=== PATIENT | female | born 1985 | race Caucasian/White ===

== ENCOUNTER → 2017-11-12 | Outpatient (CLI) | payer OTHER | END | disposition home or self-care (01) | LOC: C.PAPS 12:13 | PROVIDERS: ATTEND Physician Assistant | DX: Z12.4 Encounter for screening for malignant neoplasm of cervix (principal); R87.612 Low grade squamous intraepithelial lesion on cytologic smear of cervix (LGSIL) ==

== ENCOUNTER → 2017-12-03 | Outpatient (CLI) | payer OTHER | END | disposition home or self-care (01) | LOC: C.PATHSPEC 13:26 | PROVIDERS: ATTEND Obstetrics & Gynecology | DX: N87.0 Mild cervical dysplasia (principal); A63.0 Anogenital (venereal) warts; N72 Inflammatory disease of cervix uteri ==

== ENCOUNTER → 2018-02-25 | Outpatient (CLI) | payer BC ==
[2018-02-25 15:43] LABS: BASO % 0.3 %; BASO ABS # 0.02 K/uL (0-0.2); EOS % 1.7 %; EOS ABS # 0.13 K/uL (0-0.5); HEMATOCRIT 35.9 % (37-47); HEMOGLOBIN 11.6 g/dL (12.0-16.0); IG# 0.02 K/uL (0.00-0.02); LYMPH % 19.6 %; LYMPH ABS # 1.46 K/uL (1.2-3.4); MEAN CELL VOLUME 86.5 fL (80-100); MEAN CORPUSCULAR HGB CONC 32.3 g/dl (32-36); MEAN PLATELET VOLUME 11.2 fL (7.4-10.4); MONO % 5.6 %; MONO ABS # 0.42 K/uL (0.11-0.59); NEUT % 72.5 %; PLATELET COUNT 226 K/uL (130-400); RED CELL DISTRIBUTION WIDTH CV 13.9 % (11.5-14.5); RED CELL DISTRIBUTION WIDTH SD 43.8 fL (36.4-46.3); WHITE BLOOD COUNT 7.45 K/uL (4.8-10.8)
== END | disposition home or self-care (01) ==
LOC: C.LAB1850 14:31
PROVIDERS: ATTEND Physician Assistant
DX: K92.1 Melena (principal)

== ENCOUNTER → 2018-06-17 | Outpatient (CLI) | payer BC | END | disposition home or self-care (01) | LOC: C.PAPS 13:57 | PROVIDERS: ATTEND Obstetrics & Gynecology | DX: N87.0 Mild cervical dysplasia (principal) ==

== ENCOUNTER 2020-09-30 07:40 | Inpatient (IN) ==
[2020-09-30] MEDS ORDERED: OXYTOCIN 30 UNITS/500 ML BAG IV PRN ×3 (08:00→11:02)
--- NOTE | 2020-09-30 08:01 | History & Physical Report ---
Date of Service September 30, 2020 Assessment & Plan (1) Encounter for induction of labor: PNL: Rh pos, RI, GBS neg, COVID neg Admit, labs, start IV Epidural when desired; anesthesiology consult placed Proceed with induction of labor per Pitocin augmentation protocol. Anticipate Admission and Anticipated Discharge Date Admission Date: September 30, 2020 History of Present Illness Primary Care Provider: Vidal Jackson MD Violeta Pettit is a 35 y/o female currently at 41 WGA with an GARRETT 09/23/20 as determined by LMP who is here for IOL due to postdates. She did present last night to L&D to have the cervical parry bulb placement to help augment IOL. Her was uncomplicated; no hx of HTN, thyroid problems, of GDM. Patient reports: + irregular contractions; + movement; - fluid loss; - bloody show Had regular appointments with OB. Blood type: O+ Antibody screen: neg Labs 02/13/20 Rubella: Immune VDRL/RPR: neg Gonorrhea: neg Chlamydia: neg HIV: neg HbSAg: neg GBS: negative 08/27/20 COVID-19 negative 09/10/20 and 09/20/20 Other screens: declined cf/sma/quad/genetics Allergies Allergy/AdvReac Type Severity Reaction Status Date / Time Sulfa (Sulfonamide Allergy Verified 09/27/20 12:01 Antibiotics) Home Medications Home Medications Medication Instructions Recorded Confirmed Type [id number] fum-folic [id number] PO 11/30/19 09/27/20 History breast pump #1 ea 07/01/20 09/27/20 Rx Patient History Medical History (Updated 09/30/20 @ 08:31 by Joyce Huang DO) Condyloma acuminatum Encounter for anatomic survey Encounter for gynecological examination with abnormal finding Encounter for preconception consultation History of cervical dysplasia Hx of varicella Inflamed seborrheic keratosis LGSIL on Pap smear of cervix Mild dysplasia of cervix (DAVID I) Surgical History H/O colposcopy with cervical biopsy Family History Mother Fibroadenoma of breast Depression Social History Smoking Status: Never smoker Hx Alcohol Use: No Hx Substance Use: No Preferred Language: Yakut Beliefs That Will Affect Care: None marital status: Single marital status details: CECI Cancino (35) [phone] Current Living Situation: Spouse Current Living Situation Comment: two dogs current occupational status: employed 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 Denies shortness of breath or cough. Denies chest pain. Denies dysuria or hematuria. + int mild leg swelling. Denies leg pain. Denies headache or changes in vision. Physical Exam Physical Exam: General: Alert, oriented. No acute distress. Cardiac: Regular rate and rhythm, no murmurs/rubs/gallops. Respiratory: Clear to auscultation bilaterally a/p, no wheezes/rales/rhonchi. No increased work of breathing. Symmetrical chest rise. No respiratory distress. Abdomen: Gravid. Vertex position confirmed by bedside US. + heart tones. - palpable contractions. EFW 7-8# Pelvic: Cervical parry bulb in place. Dilation 2 cm; Effacement 50%; Station -[address] Whelan External FHT and external uterine monitors used; Category I tracing; moderate FHT variability. Lower Extremities: No lower extremity edema or swelling. No deep calf pain. Ibeth's negative bilaterally Results & Data ([facility]) Vital Signs (Past 12 Hours) Vital Signs Pulse BP 09/30/20 07:49 89 131/61 Laboratory Results Labs at admission today H.3 Hct: 37.8 WBC: 11.23 Plt: 159 Supervising Physician Co-Signing Physician Notes Resident Physician Supervision Note: I interviewed and examined the patient. Discussed with Dr. Huang and agree with findings and plan as documented in the note. Any exceptions or clarifications are listed here: 35 y/o G1 at 41 wga presents for late term IOL. +FM and irreg ctx, -LOF/VB. course uncomplicated. VSS, parry bulb still in place but at edge of cervix. Cephalic by BSUS. Will start pitocin and let parry bulb expel, suspect it will soon. Fetus cat 1 tracing Documented By: Kacie Whelan MD Resident Activity Tracking Resident Involvement: Resident Care Provided Care Provided: OB Delivery
[2020-09-30] MEDS: LACTATED RINGER'S 1,000 ML IV PRN ×3 (08:34→18:56)
[2020-09-30 08:38] LABS: Hematocrit (blood only) 37.8 % (37-47); Hemoglobin 12.3 g/dL (12.0-16.0); Mean Corpuscular Hemoglobin 28.1 pg (25-34); Mean Corpuscular Volume 86.5 fL (80-100); Mean Platelet Volume 13.3 fL (7.4-10.4); Platelet Count 159 K/uL (130-400); RDW Coefficient of Variation 17.1 % (11.5-14.5); RDW Standard Deviation 54.1 fL (36.4-46.3); Red Blood Count 4.37 M/uL (4.2-5.4); White Blood Count 11.23 K/uL (4.8-10.8)
[2020-09-30 08:53] LABS: Mean Corpuscular Hgb Conc 32.5 g/dL (32-36)
--- NOTE | 2020-09-30 10:39 | Labor Progress Brief Note ---
Date of Service September 30, 2020 Subjective Parry bulb out, noticing ctx more Assessment & Plan (1) : 35 y/o G1 at 41 wga presenting for late term IOL VSS Fetus cat 1 Labor - s/p parry bulb, pit at 3. Titrate per protocol GBS neg Epidural PRN Admission and Anticipated Discharge Date Admission Date: September 30, 2020 Physical Exam Genitourinary: OB Exam Abdomen: + irregular contractions Manual OB Exam: + cervical dilation 4 cm, + cervical effacement 50% and + station -2 OB Exam Monitor Tracing: + external FHT monitor used, + external uterine monitor used and + category I (135/mod/+accel/-decel) Results & Data ([facility]) Vital Signs (Past 12 Hours) Vital Signs Temp Pulse Resp BP 09/30/20 10:15 86 123/64 09/30/20 07:50 97.5 F L 89 20 131/61 09/30/20 07:49 89 131/61 Coding Level of Care Code None Diagnoses Z34.90
--- NOTE | 2020-09-30 15:08 | Labor Progress Brief Note ---
Date of Service September 30, 2020 Subjective Notes ctx slightly less intense than previously Assessment & Plan (1) : 35 y/o G1 at 41 wga presenting for late term IOL VSS Fetus cat 1 Labor - pit at 14, now increased to 16. s/p arom now, continue to titrate pit GBS neg Epidural PRN Admission and Anticipated Discharge Date Admission Date: September 30, 2020 Physical Exam Genitourinary: OB Exam Abdomen: + regular contractions (q3-4min) Manual OB Exam: + cervical dilation 4 cm, + cervical effacement 50%, + station -2 and + amniotic fluid (AROM) clear OB Exam Monitor Tracing: + external FHT monitor used, + external uterine monitor used and + category I (125/mod/+accel/-decel) Results & Data ([facility]) Vital Signs (Past 12 Hours) Vital Signs Temp Pulse Resp BP 09/30/20 13:02 80 20 131/79 09/30/20 12:03 81 18 122/74 09/30/20 10:58 98.2 F 76 20 122/81 09/30/20 10:15 86 123/64 09/30/20 07:50 97.5 F L 89 20 131/61 09/30/20 07:49 89 131/61 Coding Level of Care Code None Diagnoses Z34.90
[2020-09-30] MEDS ORDERED: fentaNYL 2MCG/ML ROPIVACAINE 1.25MG/ML 100 ML BAG EPI ONE (17:11)
[2020-09-30] MEDS ORDERED: ePHEDrine sulfate 50 MG/ML AMP ONE (17:11)
[2020-09-30] MEDS ORDERED: BUPIVACAINE 0.25% 30 ML VIAL ONE ×2 (17:11→20:28)
[2020-09-30] MEDS ORDERED: SODIUM CHLORIDE 0.9% INJ 10 ML VIAL ONE (17:11)
[2020-09-30] MEDS ORDERED: fentaNYL citrate 100 MCG/2 ML VIAL ONE (17:11)
--- NOTE | 2020-09-30 17:16 | Labor Progress Brief Note ---
Date of Service September 30, 2020 Subjective Ctx significantly worsened, desires epidural Assessment & Plan (1) : 35 y/o G1 at 41 wga presenting for late term IOL VSS Fetus cat 1 Labor - pit at 16, progressing following AROM, station much lower and much more uncomfortable GBS neg Epidural - desires epidural now Admission and Anticipated Discharge Date Admission Date: September 30, 2020 Physical Exam Genitourinary: OB Exam Abdomen: + regular contractions (q3min) Manual OB Exam: + cervical dilation 5 cm, + cervical effacement 70%, + station -1 and + amniotic fluid (AROM) clear OB Exam Monitor Tracing: + external FHT monitor used, + external uterine monitor used and + category I (135/mod/+accel/-decel) Results & Data ([facility]) Vital Signs (Past 12 Hours) Vital Signs Temp Pulse Resp BP Pulse Ox 09/30/20 17:10 81 100 09/30/20 16:30 77 132/75 09/30/20 15:06 98.2 F 78 20 128/82 09/30/20 13:02 80 20 131/79 09/30/20 12:03 81 18 122/74 09/30/20 10:58 98.2 F 76 20 122/81 09/30/20 10:15 86 123/64 09/30/20 07:50 97.5 F L 89 20 131/61 09/30/20 07:49 89 131/61 Coding Level of Care Code None Diagnoses Z34.90
[2020-09-30] MEDS ORDERED: NALOXONE HCL 1 MG in SODIUM CHLORIDE 0.9% 1000ML 1,000 ML IV PRN (17:17)
[2020-09-30] MEDS ORDERED: diphenhydrAMINE 50 MG/ML VIAL IV PRN (17:17)
[2020-09-30] MEDS ORDERED: ePHEDrine sulfate 50 MG/ML AMP IV PRN (17:17)
[2020-09-30] MEDS ORDERED: ONDANSETRON INJ 2 MG/ML 2 ML VIAL IV PRN (17:17)
[2020-09-30] MEDS ORDERED: fentaNYL 2MCG/ML ROPIVACAINE 1.25MG/ML 100 ML BAG EPI PRN (17:17)
[2020-09-30] MEDS ORDERED: NALOXONE HCL 0.4 MG/1 ML VIAL/CARP IV PRN (17:17)
--- NOTE | 2020-09-30 17:19 | Anesthesiology Consultation ---
Date of Service September 30, 2020 Assessment & Plan (1) Encounter for pre-operative examination: Chart Review Chart Review: Patient NOT seen in Pre Admission Testing and Acceptable Risk for Labor Epidural Consults Requested none History Height/Weight Height: 5 ft 4 in Weight: 72.575 kg Allergies Allergy/AdvReac Type Severity Reaction Status Date / Time Sulfa (Sulfonamide Allergy Mild Rash Verified 09/30/20 10:01 Antibiotics) Medications Home Medications Medication Instructions Recorded Confirmed Last Taken prenat.vits,juan c,xvb-tbve-conaz 1 tab PO DAILY 09/30/20 09/30/20 09/30/20 07:00 [ Vitamin] Active Medications Generic Name Dose Route Start Last Admin Trade Name Freq PRN Reason Stop Dose Admin Lactated Ringer's 1,000 mls @ 125 mls/hr 09/30/20 08:00 09/30/20 17:16 Lr IV 10/02/20 07:59 999 mls/hr .Q8H PRN Infusion L&D Protocol Protocol Oxytocin 30 units in 500 mls @ 16 mls/hr 09/30/20 11:02 09/30/20 15:00 Pitocin IV 10/02/20 11:01 0.96 units/hr .Q24H PRN 16 mls/hr Labor Induction/Augmentation Titration Protocol 0.96 UNITS/HR Past Medical History Medical History Condyloma acuminatum Encounter for anatomic survey Encounter for gynecological examination with abnormal finding Encounter for preconception consultation History of cervical dysplasia Hx of varicella Inflamed seborrheic keratosis LGSIL on Pap smear of cervix Mild dysplasia of cervix (DAVID I) Exercise / Class Metabolic Activity II 4-5 Yardwork/Stairs/Walk up hill Past Family History Family History Mother Fibroadenoma of breast Depression Past Surgical History Surgical History H/O colposcopy with cervical biopsy Past Anesthesia History No Hx of Anesthesia Complications and No Family Hx of Anesthesia Complications History of PONV No Hx of PONV and No Hx of Motion Sickness Social History Smoking Status: Never smoker Do You Dip or Chew Tobacco: No Hx Alcohol Use: No Hx Substance Use: No substance use type: does not use Physical Exam Vital Signs Last Vital Signs Temp 36.8 C 09/30/20 15:06 Pulse 77 09/30/20 17:34 Resp 20 09/30/20 15:06 BP 133/74 09/30/20 17:34 Pulse Ox 100 09/30/20 17:30 Testing Laboratory Results 09/30/20 08:09
--- NOTE | 2020-09-30 19:38 | Labor Progress Brief Note ---
Date of Service September 30, 2020 Subjective Noticing some ctx pain again on R side Assessment & Plan (1) : 35 y/o G1 at 41 wga presenting for late term IOL VSS Fetus cat 1 Labor - pit at 18, continue pit augmentation. Station has come down GBS neg Epidural in place Admission and Anticipated Discharge Date Admission Date: September 30, 2020 Physical Exam Genitourinary: OB Exam Abdomen: + regular contractions (q3-4min) Manual OB Exam: + cervical dilation 5 cm, + cervical effacement 70%, + station 0 and + a mniotic fluid clear OB Exam Monitor Tracing: + external FHT monitor used, + external uterine monitor used and + category I (125/mod/+accel/-decel) Results & Data ([facility]) Vital Signs (Past 12 Hours) Vital Signs Temp Pulse Resp BP Pulse Ox 09/30/20 19:30 69 100 09/30/20 19:26 64 119/69 09/30/20 19:25 74 100 09/30/20 19:20 70 99 09/30/20 19:15 65 98 09/30/20 19:11 66 128/65 09/30/20 19:10 66 100 09/30/20 19:06 97.5 F L 18 09/30/20 19:05 67 99 09/30/20 19:00 81 100 09/30/20 18:57 75 126/71 09/30/20 18:55 74 100 09/30/20 18:50 74 100 09/30/20 18:45 72 100 09/30/20 18:40 76 100 09/30/20 18:35 83 99 09/30/20 18:30 80 99 09/30/20 18:26 77 120/77 09/30/20 18:25 72 99 09/30/20 18:20 75 99 09/30/20 18:15 79 100 09/30/20 18:10 77 100 09/30/20 18:05 73 100 09/30/20 18:00 86 100 09/30/20 17:59 82 20 113/64 09/30/20 17:55 77 100 09/30/20 17:51 75 108/64 09/30/20 17:50 78 100 09/30/20 17:49 72 116/69 09/30/20 17:47 78 114/71 09/30/20 17:45 78 119/70 100 09/30/20 17:43 97.7 F 76 20 113/69 09/30/20 17:41 75 119/70 09/30/20 17:40 77 100 09/30/20 17:39 73 118/68 09/30/20 17:37 86 119/71 09/30/20 17:35 87 130/70 100 09/30/20 17:34 77 133/74 09/30/20 17:30 81 100 09/30/20 17:25 84 100 09/30/20 17:20 82 100 09/30/20 17:15 76 99 09/30/20 17:10 81 100 09/30/20 16:30 77 132/75 09/30/20 15:06 98.2 F 78 20 128/82 09/30/20 13:02 80 20 131/79 09/30/20 12:03 81 18 122/74 09/30/20 10:58 98.2 F 76 20 122/81 09/30/20 10:15 86 123/64 09/30/20 07:50 97.5 F L 89 20 131/61 09/30/20 07:49 89 131/61 Coding Level of Care Code None Diagnoses Z34.90
[2020-09-30] MEDS ORDERED: NURSING L&D Epidural Breakthrough Pain Update ONE (20:10)
--- NOTE | 2020-09-30 20:38 | Communication Note ---
Date of Service: September 30, 2020 pt having increased pain in lower abdomen despite hitting epidural bolus button. gave a total of 8ml 0.25 % bupivicaine in divided doses. pt on monitor. vss.
[2020-09-30] MEDS ORDERED: BUPIVACAINE 0.25% 30 ML VIAL INJ ONE (20:50)
--- NOTE | 2020-09-30 22:38 | Labor Progress Brief Note ---
Date of Service September 30, 2020 Subjective Had significant pain following last exam, however epidural was re-bolused and has drastically improved Assessment & Plan (1) : 35 y/o G1 at 41 wga presenting for late term IOL VSS Fetus cat 1 Labor - pit at 18, progressing well GBS neg Epidural in place Admission and Anticipated Discharge Date Admission Date: September 30, 2020 Physical Exam Genitourinary: OB Exam Abdomen: + regular contractions (q3-4min) Manual OB Exam: + cervical dilation 8 cm, + cervical effacement 90% and + station + 1 OB Exam Monitor Tracing: + external FHT monitor used, + external uterine monitor used and + category I (130/mod/+accel/-decel) Results & Data ([facility]) Vital Signs (Past 12 Hours) Vital Signs Temp Pulse Resp BP Pulse Ox 09/30/20 22:25 85 98 09/30/20 22:22 75 119/65 09/30/20 22:20 75 100 09/30/20 22:15 78 98 09/30/20 22:10 73 100 09/30/20 22:06 80 143/65 H 09/30/20 22:05 70 99 09/30/20 22:00 70 99 09/30/20 21:55 69 97 09/30/20 21:51 68 117/57 L 09/30/20 21:50 70 100 09/30/20 21:45 72 98 09/30/20 21:40 69 98 09/30/20 21:35 68 125/67 99 09/30/20 21:33 69 122/63 09/30/20 21:31 69 120/59 L 09/30/20 21:30 73 123/70 97 09/30/20 21:25 76 99 09/30/20 21:20 72 100 09/30/20 21:19 74 111/67 09/30/20 21:17 81 110/57 L 09/30/20 21:15 69 108/60 100 09/30/20 21:14 76 129/68 09/30/20 21:12 75 139/84 09/30/20 21:10 79 100 09/30/20 21:09 88 126/77 09/30/20 21:07 75 129/83 09/30/20 21:05 76 123/75 100 09/30/20 21:03 68 133/76 09/30/20 21:01 73 139/77 09/30/20 21:00 73 100 09/30/20 20:55 78 136/83 100 09/30/20 20:53 73 129/78 09/30/20 20:51 74 141/83 H 09/30/20 20:50 74 100 09/30/20 20:49 98.4 F 84 18 135/73 09/30/20 20:45 92 H 100 09/30/20 20:44 76 124/60 09/30/20 20:40 82 100 09/30/20 20:37 65 149/92 H 09/30/20 20:35 74 153/86 H 100 09/30/20 20:30 79 100 09/30/20 20:26 80 143/81 H 09/30/20 20:25 73 100 09/30/20 20:20 74 100 09/30/20 20:15 79 100 09/30/20 20:11 68 144/86 H 09/30/20 20:10 71 100 09/30/20 20:05 70 100 09/30/20 20:00 78 100 09/30/20 19:56 73 141/93 H 09/30/20 19:55 69 100 09/30/20 19:50 74 100 09/30/20 19:45 64 100 09/30/20 19:41 65 140/81 09/30/20 19:40 75 100 09/30/20 19:35 66 100 09/30/20 19:30 69 100 09/30/20 19:26 64 119/69 09/30/20 19:25 74 100 09/30/20 19:20 70 99 09/30/20 19:15 65 98 09/30/20 19:11 66 128/65 09/30/20 19:10 66 100 09/30/20 19:06 97.5 F L 18 09/30/20 19:05 67 99 09/30/20 19:00 81 100 09/30/20 18:57 75 126/71 09/30/20 18:55 74 100 09/30/20 18:50 74 100 09/30/20 18:45 72 100 09/30/20 18:40 76 100 09/30/20 18:35 83 99 09/30/20 18:30 80 99 09/30/20 18:26 77 120/77 09/30/20 18:25 72 99 09/30/20 18:20 75 99 09/30/20 18:15 79 100 09/30/20 18:10 77 100 09/30/20 18:05 73 100 09/30/20 18:00 86 100 09/30/20 17:59 82 20 113/64 09/30/20 17:55 77 100 09/30/20 17:51 75 108/64 09/30/20 17:50 78 100 09/30/20 17:49 72 116/69 09/30/20 17:47 78 114/71 09/30/20 17:45 78 119/70 100 09/30/20 17:43 97.7 F 76 20 113/69 09/30/20 17:41 75 119/70 09/30/20 17:40 77 100 09/30/20 17:39 73 118/68 09/30/20 17:37 86 119/71 09/30/20 17:35 87 130/70 100 09/30/20 17:34 77 133/74 09/30/20 17:30 81 100 09/30/20 17:25 84 100 09/30/20 17:20 82 100 09/30/20 17:15 76 99 09/30/20 17:10 81 100 09/30/20 16:30 77 132/75 09/30/20 15:06 98.2 F 78 20 128/82 09/30/20 13:02 80 20 131/79 09/30/20 12:03 81 18 122/74 09/30/20 10:58 98.2 F 76 20 122/81 Coding Level of Care Code None Diagnoses Z34.90
[2020-10-01] MEDS: LACTATED RINGER'S 1,000 ML IV PRN (00:51)
[2020-10-01] MEDS ORDERED: MINERAL OIL 30 ML UDC ONE (02:34)
[2020-10-01] MEDS ORDERED: ACETAMINOPHEN 325 MG TAB PO PRN (03:41)
[2020-10-01 03:51] LABS: Base Excess Cord Venous Blood -10.6 mEq/L (-7.7-1.9); Cord Venous Blood HCO3 15 mmol/L (18.4-26.8); Cord Venous Blood PCO2 32 mmHg (30.4-57.2); Cord Venous Blood PO2 34 mmHg (14.1-43.3); Cord Venous Blood pH 7.28 (7.20-7.44)
[2020-10-01] MEDS ORDERED: HYDROCORTISONE ACETATE 25 MG SUPP PR PRN (03:53)
[2020-10-01] MEDS ORDERED: OXYTOCIN 30 UNITS/500 ML BAG IV PRN (03:53)
[2020-10-01] MEDS ORDERED: bisacodyL 10 MG SUPP PR PRN (03:53)
[2020-10-01] MEDS ORDERED: SUPERCREAM 0.870% 15 GM JAR EXT PRN (03:53)
[2020-10-01] MEDS ORDERED: LACTATED RINGER'S 1,000 ML IV SCH (03:53)
[2020-10-01] MEDS ORDERED: DIPHTHERIA/TETANUS/PERTUSSIS 0.5 ML SYR/VIAL IM ONE (03:53)
[2020-10-01] MEDS ORDERED: BENZOCAINE 20% AER SPR 82.5 GM CAN EXT PRN (03:53)
--- NOTE | 2020-10-01 03:55 | Delivery Summary ---
Vaginal Delivery Summary Date of Service October 01, 2020 Vaginal Delivery Summary PREOPERATIVE DIAGNOSIS: 1. Single intrauterine at 41 1/7 weeks gestation 2. Late term induction of labor POSTOPERATIVE DIAGNOSIS: 1. Single intrauterine at 41 1/7 weeks gestation 2. Late term induction of labor 3. Delivered PROCEDURE: 1. Normal spontaneous vaginal delivery. SURGEON: Kacie Whelan MD ANESTHESIA: Epidural. ESTIMATED BLOOD LOSS: 300 mL FLUIDS: Continuous LR. URINE OUTPUT: None. COMPLICATIONS: Shoulder dystocia CONDITION: Stable. INDICATIONS: 35 y/o G1 at 41 1/7 wga presented 1 evening ago for parry bulb placement for scheduled late term IOL. Following parry bulb placement and expulsion the following morning, oxytocin was initiated per protocol. She underwent artificial rupture of membranes. She received an epidural for pain control. She then progressed to complete, complete, and +2 station and desired to push. FINDINGS: A viable male , weight pending, with Apgars of 8 and 9 at 1 and 5 minutes respectively. Shoulder dystocia lasted for <30 seconds, resolved with Deven maneuver and suprapubic pressure SPECIMEN: Cord gases. OPERATIVE REPORT: The patient progressed to 10 cm, 100% effaced and +2 station, pushed over intact perineum with anesthesia to deliver a viable male infant, weight and Apgars as above. Head of delivered in MARCELINO position following a small right mediolateral episiotomy to effect delivery of head. No nuchal cord was present. Anterior shoulder did not deliver easily with gentle traction and shoulder dystocia was called. Head was laid down and suprapubic pressure was applied with simultaneous Deven maneuver. Anterior shoulder did subsequently deliver easily. Remainder of body and shoulders were then delivered without difficulty. Terminal meconium was noted. Delayed cord cl amping was deferred as was not immediately vigorous and cord was clamped and cut. was delivered to awaiting nursing staff. Cord segment and blood was obtained. Placenta delivered spontaneously intact with 3-vessel cord. IV oxytocin and fundal massage were given for excellent hemostasis. Vagina, cervix, placenta and perineum were inspected. A left vaginal laceration was noted in addition to the 1cm R mediolateral episiotomy. These were repaired in the usual fashion using 3-0 vicryl on a CT1 and 4-0 vicryl on an SH needle, respectively. They were noted to be excellently hemostatic. Sponge and needle counts correct x2. No sponges were left behind. Mother and stable in immediate period. [facility] Vaginal Delivery Charge Vaginal Delivery Codes: 20716 global code for the antepartum, delivery, and post-
--- NOTE | 2020-10-01 04:25 | Anesthesia Procedure Note ---
Date of Service October 01, 2020 Anesthesia Post Epidural Note Vital Signs Vital Signs: Temp Pulse Resp BP Pulse Ox 36.9 C 76 16 132/63 92 09/30/20 20:49 10/01/20 04:10 10/01/20 04:10 10/01/20 04:10 10/01/20 02:59 Pain Intensity Bilateral Abdomen: Pain Intensity: 0 Notes Mental Status: alert / awake / arousable Patient Amnestic to Procedure: No Nausea / Vomiting: adequately controlled Pain: adequately controlled Airway Patency, RR, SpO2: stable & adequate BP & HR: stable & adequate Hydration State: stable & adequate Neuraxial Anesthesia: was administered and sensory block is resolving Anesthetic Complications: no major complications apparent and Pt Satisfied with anesthetic care Epidural: Removed without complications and With tip intact
[2020-10-01] MEDS: IBUPROFEN 600 MG TAB PO PRN ×2 (08:34→20:12)
[2020-10-01] MEDS: PRENATAL VITAMIN 1 TAB PO SCH (08:35)
[2020-10-01] MEDS: DOCUSATE SODIUM 100 MG CAP PO SCH ×2 (08:35→20:14)
--- NOTE | 2020-10-02 06:15 | Obstetrical Progress Note ---
Date of Service <Joyce Huang DO - Last Filed: 10/02/20 06:49> October 02, 2020 Assessment & Plan <Joyce Huang DO - Last Filed: 10/02/20 06:49> (1) state: PPD #1 - PNL: Rh pos, RI, GBS neg, COVID neg - Feels well today. Eating well, voiding well, ambulating well. - Pain well controlled with ibuprofen 600mg Q4H PRN - Routine care -- continue OOB, ambulation, and full diet as tolerated - After discharge will have 6 week follow-up with Dr. Whelan. - Plan for d/c home today. - Return/contact OB precautions discussed with patient. All questions answered to patient's satisfaction. Subjective <Joyce Huang DO - Last Filed: 10/02/20 06:49> Violeta Pettit is a 35 y/o female who is PPD #1 following spontaneous vaginal delivery after IOL at 41 and 1/7 weeks. She reports feeling well overall this morning. Minimal abdominal cramping and 1-2/10 pain well managed on analgesics. Voiding without dysuria. Tolerating meals overnight without difficulty, nausea, or vomiting. Patient has been able to ambulate some. Has persistent lochia with some improvement this morning. Currently . Patient does ask if she can be d/c home today. Review of Systems Denies fever or chills. Denies shortness of breath or cough. Denies chest pain. Denies breast pain. Denies dysuria. Denies leg pain or leg swelling. Denies headache or changes in vision. Physical Exam <Joyce Huang DO - Last Filed: 10/02/20 06:49> General: Alert, oriented. No acute distress. Cardiac: Regular rate and rhythm. No murmurs. Respiratory: Clear to auscultation bilaterally a/p, no wheezes/rales/rhonchi. No increased work of breathing. Symmetrical chest rise. No respiratory distress. Abdomen: Soft, nontender, nondistended. Bowel sounds present. Uterus: Uterine fundus firm, palpable at umbilicus. Lower Extremities: No lower extremity edema or swelling. No deep calf pain. Ibeth's negative bilaterally. Results & Data ([facility]) <Joyce Huang DO - Last Filed: 10/02/20 06:49> Vital Signs (Past 12 Hours) Vital Signs Temp Pulse Resp BP Pulse Ox 10/01/20 23:55 36.3 C L 74 17 105/67 98 10/01/20 19:25 36.6 C 73 18 125/75 Laboratory Results 10/02/20 Range/Units 05:46 WBC 18.12 H (4.8-10.8) K/uL RBC 3.70 L (4.2-5.4) M/uL Hgb 10.4 L (12.0-16.0) g/dL Hct 32.1 L (37-47) % MCV 86.8 (80-100) fL MCH 28.1 (25-34) pg MCHC 32.4 (32-36) g/dL RDW Std Deviation 54.5 H (36.4-46.3) fL RDW Coeff of Denis 17.5 H (11.5-14.5) % Plt Count 139 (130-400) K/uL Platelet Estimate Decreased L (Normal) <Radha Saunders MD - Last Filed: 10/02/20 06:55> Co-Signing Physician Notes I have reviewed the resident's note and examined the patient myself, and agree with the note above. Resident Activity Tracking <Joyce Huang DO - Last Filed: 10/02/20 06:49> Resident Involvement: Resident Care Provided Care Provided: OB Delivery
[2020-10-02 06:42] LABS: Hematocrit (blood only) 32.1 % (37-47); Hemoglobin 10.4 g/dL (12.0-16.0); Mean Corpuscular Hemoglobin 28.1 pg (25-34); Mean Corpuscular Hgb Conc 32.4 g/dL (32-36); Mean Corpuscular Volume 86.8 fL (80-100); Platelet Count 139 K/uL (130-400); RDW Coefficient of Variation 17.5 % (11.5-14.5); RDW Standard Deviation 54.5 fL (36.4-46.3); White Blood Count 18.12 K/uL (4.8-10.8)
[2020-10-02 06:43] LABS: Platelet Estimate Decreased (Normal)
[2020-10-02] MEDS: DOCUSATE SODIUM 100 MG CAP PO SCH (07:55)
[2020-10-02] MEDS: PRENATAL VITAMIN 1 TAB PO SCH (07:55)
[2020-10-02] MEDS: IBUPROFEN 600 MG TAB PO PRN (07:55)
[2020-10-02 09:21] VITALS: BP 118/74; PULSE 58; TEMP 97.5; O2SAT 99
[2020-10-02] MEDS ORDERED: bisacodyL 5 MG TABEC PO SCH (20:00)
== END 2020-10-02 14:00 | disposition home or self-care (01) | DRG 807 ==
LOC: 4S1 07:40 → 4S2 10-01 06:20
DX: O48.0 Post-term pregnancy; Z88.2 Allergy status to sulfonamides; Z37.0 Single live birth; Z3A.41 41 weeks gestation of pregnancy; O66.0 Obstructed labor due to shoulder dystocia; O70.0 First degree perineal laceration during delivery; O77.0 Labor and delivery complicated by meconium in amniotic fluid

== ENCOUNTER 2022-06-15 09:32 | Inpatient (IN) ==
[2022-06-15] MEDS ORDERED: OXYTOCIN 30 UNITS/500 ML BAG IV PRN ×2 (13:19→13:21)
[2022-06-15] MEDS: LACTATED RINGER'S 1,000 ML IV PRN ×3 (14:10→22:08)
[2022-06-15 14:23] LABS: Hematocrit (blood only) 36.6 % (34.1-44.9); Hemoglobin 11.8 g/dl (12.0-16.0); Mean Corpuscular Hemoglobin 28.6 pg (25.0-34.0); Mean Corpuscular Hgb Conc 32.2 g/dL (32.0-36.0); Mean Corpuscular Volume 88.8 fL (80.0-100.0); Mean Platelet Volume 11.7 fL (9.4-12.3); Platelet Count 190 K/uL (130-400); RDW Coefficient of Variation 14.4 % (11.5-14.5); RDW Standard Deviation 45.7 fL (36.4-46.3); Red Blood Count 4.12 M/uL (3.93-5.22); White Blood Count 8.86 K/ul (4.8-10.8)
--- NOTE | 2022-06-15 17:20 | History & Physical Report ---
Date of Service June 15, 2022 Assessment & Plan (1) Elderly multigravida: Plan: IUP at 40 5/7 weeks for IOL start pitocin augmentation epidural when requested anticipate vaginal Admission and Anticipated Discharge Date Admission Date: June 15, 2022 History of Present Illness Primary Care Provider: Vidal Jackson MD Patient is a 37 yo female EDC 06/10/22 who presents for IOL because of post-term . otherwise uncomplicated except for AMA status. GBS - negative Allergies Allergy/AdvReac Type Severity Reaction Status Date / Time Sulfa (Sulfonamide Allergy Mild Rash Verified 06/11/22 11:01 Antibiotics) Home Medications Medication Instructions Recorded Confirmed Type prenat.vits,juan c,dle-[id number] 1 tab PO DAILY 09/30/20 06/15/22 History breast pump #1 ea 05/20/22 06/11/22 Rx Patient History Medical History Condyloma acuminatum Encounter for anatomic survey Encounter for gynecological examination with abnormal finding Encounter for preconception consultation History of cervical dysplasia Hx of varicella Inflamed seborrheic keratosis LGSIL on Pap smear of cervix Mild dysplasia of cervix (DAVID I) Surgical History H/O colposcopy with cervical biopsy Family History Mother Fibroadenoma of breast Depression Grandmother (Paternal) Breast cancer Denies family history of Ovarian cancer Colorectal cancer Social History Smoking Status: Never smoker Second Hand Exposure: No; Do You Dip or Chew Tobacco: No; Tobacco Cessation Education Requested by Patient: No (N/A) Hx Alcohol Use: No Hx Substance Use: No Preferred Language: Yakut Communication Ability: Effective 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 Beliefs That Will Affect Care: None marital status: Life Partner marital status details: CECI Cancino [phone] Current Living Situation: Spouse and Other Current Living Situation Comment: 20month old son current occupational status: employed 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, 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 Other Information That Helps Us Care for You: No Feels Safe at Home: Yes Assistive Devices: None Review of Systems All systems reviewed & are unremarkable except as noted in HPI & below Physical Exam Constitutional: WD/WN, vitals as above Psychiatric: A+Ox3, euthymic affect Genitourinary: OB Exam Abdomen: + vertex and + estimated weight (7-8 pounds) Manual OB Exam: + cervical dilation 3 cm, + cervical effacement 60% and + station -2 OB Exam Monitor Tracing: + external FHT monitor used, + external uterine monitor used, + category I and + normal FHT variability Results & Data ([facility]) Vital Signs (Past 12 Hours) Vital Signs Temp Pulse Resp BP 06/15/22 14:49 97.7 F 84 18 120/69 06/15/22 13:24 84 120/69 Coding Level of Care Code None Diagnoses Elderly multigravida O09.529
[2022-06-16] MEDS ORDERED: fentaNYL citrate 100 MCG/2 ML VIAL ONE (01:59)
[2022-06-16] MEDS ORDERED: ePHEDrine sulfate 50 MG/ML AMP ONE (01:59)
[2022-06-16] MEDS ORDERED: BUPIVACAINE 0.25% 30 ML VIAL ONE (02:00)
[2022-06-16] MEDS ORDERED: SODIUM CHLORIDE 0.9% INJ 10 ML VIAL ONE (02:00)
[2022-06-16] MEDS ORDERED: fentaNYL 2MCG/ML ROPIVACAINE 1.25MG/ML 100 ML BAG EPI ONE (02:00)
[2022-06-16] MEDS ORDERED: LIDOCAINE 2%/EPINEPHRINE 1:200,000 20 ML SDV ONE (02:00)
[2022-06-16] MEDS ORDERED: ONDANSETRON INJ 2 MG/ML 2 ML VIAL IV PRN (02:14)
[2022-06-16] MEDS ORDERED: NALOXONE HCL 1 MG in SODIUM CHLORIDE 0.9% 1000ML 1,000 ML IV PRN (02:14)
[2022-06-16] MEDS ORDERED: diphenhydrAMINE 50 MG/ML VIAL IV PRN (02:14)
[2022-06-16] MEDS ORDERED: fentaNYL 2MCG/ML ROPIVACAINE 1.25MG/ML 100 ML BAG EPI PRN (02:14)
[2022-06-16] MEDS ORDERED: NALBUPHINE HCL INJ 10 MG/ML AMP IV PRN (02:14)
[2022-06-16] MEDS ORDERED: NALOXONE HCL 0.4 MG/1 ML VIAL/CARP IV PRN (02:14)
[2022-06-16] MEDS ORDERED: ePHEDrine sulfate 50 MG/ML AMP IV PRN (02:14)
--- NOTE | 2022-06-16 02:18 | Anesthesiology Consultation ---
Date of Service June 16, 2022 Assessment & Plan (1) Encounter for pre-operative examination: Chart Review Chart Review: Patient NOT seen in Pre Admission Testing and Acceptable Risk for Labor Epidural Consults Requested none History Height/Weight Height: 5 ft 4 in Weight: 73.028 kg Allergies Allergy/AdvReac Type Severity Reaction Status Date / Time Sulfa (Sulfonamide Allergy Mild Rash Verified 06/11/22 11:01 Antibiotics) Medications Home Medications Medication Instructions Recorded Confirmed Last Taken prenat.vits,juan c,pps-dvxq-hftnn 1 tab PO DAILY 09/30/20 06/15/22 1 Day Ago ~06/14/22 breast pump #1 ea 05/20/22 06/11/22 Unknown Active Medications Generic Name Dose Route Start Last Admin Trade Name Freq PRN Reason Stop Dose Admin Lactated Ringer's 1,000 mls @ 125 mls/hr 06/15/22 13:19 06/16/22 02:32 Lr IV 06/17/22 13:18 125 mls/hr .Q8H PRN Infusion L&D Protocol Protocol Oxytocin 30 units in 500 mls @ 13 mls/hr 06/15/22 13:21 06/16/22 00:15 Pitocin IV 06/17/22 13:20 0.78 units/hr .Q24H PRN 13 mls/hr Labor Induction/Augmentation Titration Protocol 0.78 UNITS/HR Past Medical History Medical History (Updated 06/16/22 @ 02:18 by Gurpreet Krishnamurthy MD) Condyloma acuminatum History of cervical dysplasia Hx of varicella Inflamed seborrheic keratosis LGSIL on Pap smear of cervix Mild dysplasia of cervix (DAVID I) Past Family History Family History Mother Fibroadenoma of breast Depression Grandmother (Paternal) Breast cancer Denies family history of Ovarian cancer Colorectal cancer Past Surgical History Surgical History H/O colposcopy with cervical biopsy Social History Smoking Status: Never smoker Do You Dip or Chew Tobacco: No Hx Alcohol Use: No Hx Substance Use: No substance use type: does not use Physical Exam Vital Signs Last Vital Signs Temp 36.7 C 06/16/22 01:30 Pulse 75 06/16/22 02:35 Resp 20 06/15/22 23:35 BP 115/59 L 06/16/22 02:35 Pulse Ox 98 06/16/22 02:30 Testing Laboratory Results 06/15/22 13:48
[2022-06-16] MEDS: LACTATED RINGER'S 1,000 ML IV PRN (02:31)
[2022-06-16] MEDS ORDERED: ACETAMINOPHEN 325 MG TAB PO PRN (06:15)
[2022-06-16] MEDS ORDERED: DIPHTHERIA/TETANUS/PERTUSSIS 0.5 ML SYR/VIAL IM ONE (06:15)
[2022-06-16] MEDS ORDERED: IBUPROFEN 600 MG TAB PO PRN (06:15)
[2022-06-16] MEDS ORDERED: HYDROCORTISONE ACETATE 25 MG SUPP PR PRN (06:15)
[2022-06-16] MEDS ORDERED: OXYTOCIN 30 UNITS/500 ML BAG IV PRN (06:15)
[2022-06-16] MEDS ORDERED: BENZOCAINE 20% AER SPR 82.5 GM CAN EXT PRN (06:15)
[2022-06-16] MEDS ORDERED: oxyCODONE/ACETAMINOPHEN 5mg/325mg TAB PO PRN (06:15)
[2022-06-16] MEDS ORDERED: bisacodyL 10 MG SUPP PR PRN (06:15)
--- NOTE | 2022-06-16 06:20 | Delivery Summary ---
Vaginal Delivery Summary Date of Service June 16, 2022 Vaginal Delivery Summary Patient is a 37-year-old 2 para 1-0-0-1 female EDC of 06/10/2022 who presented for induction of labor because of postterm . She received Pitocin augmentation of her contractions and had adequate epidural analgesia. She progressed to complete dilation and pushed effectively over intact perineum for delivery of a viable female infant. Infant was vigorous and crying at . After 1 minute the cord was clamped and cut. Placenta was then expressed intact with a three-vessel cord. bleeding was controlled with dilute Pitocin and fundal massage. Estimated blood loss 200 cc. Mother and were doing well after delivery. [facility] Vaginal Delivery Charge Delivery Type Details:
--- NOTE | 2022-06-16 07:31 | Anesthesia Procedure Note ---
Date of Service June 16, 2022 Anesthesia Post Epidural Note Vital Signs Vital Signs: Temp Pulse Resp BP Pulse Ox 97.9 F 60 18 123/66 99 06/16/22 03:28 06/16/22 07:20 06/16/22 03:28 06/16/22 07:20 06/16/22 05:50 Pain Intensity Bilateral Abdomen: Pain Intensity: 2 Notes Mental Status: alert / awake / arousable and participated in evaluation Nausea / Vomiting: adequately controlled Pain: adequately controlled Airway Patency, RR, SpO2: stable & adequate BP & HR: stable & adequate Hydration State: stable & adequate Neuraxial Anesthesia: was administered and sensory block is resolving Anesthetic Complications: no major complications apparent and Pt Satisfied with anesthetic care Epidural: Removed without complications and With tip intact
[2022-06-16] MEDS ORDERED: Nursing to Pharmacy Communication SCH (08:00)
[2022-06-16] MEDS ORDERED: PRENATAL VITAMIN 1 TAB PO SCH (08:00)
[2022-06-16] MEDS: DOCUSATE SODIUM 100 MG CAP PO SCH ×2 (21:20)
--- NOTE | 2022-06-17 05:40 | Obstetrical Progress Note ---
Date of Service <Starla Isis Negro DO - Last Filed: 06/17/22 06:39> June 17, 2022 Assessment & Plan <Starla Isis Negro DO - Last Filed: 06/17/22 06:39> (1) : Patient is PPD day 1 s/p and doing well. - Feels well today. Eating well, voiding well, ambulating well - Pain well controlled without analgesics - OOB, ambulation, diet progression as tolerated - Plan to discharge today after baby's 24 hours - After discharge, 6 week follow up with <Petty Burns, DO - Last Filed: 06/17/22 07:25> (1) : Subjective <Starla Isis Negro, DO - Last Filed: 06/17/22 06:39> Violeta Pettit is a 37 yo female who is now PPD #1 following spontaneous vaginal delivery at 40 weeks. Reports feeling well this morning. Endorses a bdominal cramping especially when breast feeding and pain well managed without analgesics. Voiding well. Tolerating meals overnight. She had one episode of vomiting yesterday but has felt fine since. She is able to ambulate some. Not passing gas and no bowel movements. Some persistent lochia with some improvement this morning. Currently breast feeding. She is experiencing a lot of nipple pain, but has continued with breast feeding and using cream for her nipples. She explains that her right foot was much more swollen yesterday and the edema has since decreased. Review of Systems Denies fever, chills, sweats. Denies SOB, difficulty breathing, chest pain, palpitations, and chest pressure. Denies breast pain. Denies dysuria. Denies headache or changes in vision. Physical Exam <Starla Isis Negro DO - Last Filed: 06/17/22 06:39> General: Alert and oriented. No acute distress. CV: Regular rate and rhythm. No murmurs. Respiratory: CTA bilaterally. No rhonchi, wheezes, or crackles. No increased work of breathing. Abdomen: Positive bowel sounds. Soft, nontender, non distended. Uterus: Fundus firm and palpable 2 cm below the umbilicus. Lower extremities: Right foot and ankle swollen. 1+ pitting edema. No deep calf pain. Ibeth's negative bilaterally. Results & Data ([facility]) <Starla Negro, - Last Filed: 06/17/22 06:39> Vital Signs (Past 12 Hours) Vital Signs Temp Pulse Pulse Resp BP BP Pulse Ox 06/17/22 04:30 36.7 C 80 16 106/68 98 06/17/22 00:30 36.8 C 75 16 117/78 97 06/16/22 19:45 36.6 C 64 16 110/74 100 06/16/22 17:45 36.7 C 67 20 117/68 O2 Del Method 06/17/22 04:30 Room Air 06/17/22 00:30 Room Air 06/16/22 19:45 Room Air 06/16/22 17:45 Room Air <Petty Burns, - Last Filed: 06/17/22 07:25> Co-Signing Physician Notes Resident Physician Supervision Note: I was present with Dr. Negro during the history and exam. I discussed the case with the resident and agree with the findings and plan as documented in the note. Any exceptions or clarifications are listed here: PPD#1 doing well, desires DC home. Reviewed DC instructions, followup 6w PP. Documented By: Petty Burns DO Resident Activity Tracking <Starla Negro, - Last Filed: 06/17/22 06:39> Resident Involvement: Resident Care Provided Care Provided: OB Delivery
[2022-06-17 06:13] LABS: Hemoglobin 11.7 g/dl (12.0-16.0); Mean Corpuscular Hemoglobin 28.5 pg (25.0-34.0); Mean Corpuscular Hgb Conc 32.5 g/dL (32.0-36.0); Mean Corpuscular Volume 87.8 fL (80.0-100.0); Mean Platelet Volume 11.5 fL (9.4-12.3); Platelet Count 167 K/uL (130-400); RDW Coefficient of Variation 14.2 % (11.5-14.5); RDW Standard Deviation 44.5 fL (36.4-46.3); White Blood Count 12.19 K/ul (4.8-10.8)
[2022-06-17] MEDS: DOCUSATE SODIUM 100 MG CAP PO SCH (08:20)
[2022-06-17] MEDS ORDERED: bisacodyL 5 MG TABEC PO SCH (20:00)
== END 2022-06-17 12:00 | disposition home or self-care (01) | DRG 807 ==
LOC: 4S1 13:10 → 4E2 06-16 10:08